=== PATIENT | male | born 1960 | race Caucasian/White ===

== ENCOUNTER 2018-08-24 08:23 | Emergency (ER) | payer OTHER ==
[2018-08-24] MEDS: KETOROLAC 30 MG INJ IM (09:04)
== END 2018-08-24 10:38 | disposition home or self-care (01) ==
LOC: FTE 08:23
DX: B02.9 Zoster without complications (principal); I10 Essential (primary) hypertension; F17.210 Nicotine dependence, cigarettes, uncomplicated; M54.6 Pain in thoracic spine
CPT/HCPCS: 71045; 93005; 96372; 99284-25